=== PATIENT | female | born 1945 | race Caucasian/White ===

== ENCOUNTER 2018-06-30 04:10 | Emergency (ER) | payer MEDICARE, OTHER ==
--- NOTE | 2018-06-30 04:38 | EDM.PDOC ---
ED HPI GENERAL MEDICAL PROBLEM - General Chief Complaint: Genitourinary Problem Stated Complaint: SCRAPPING OF THE BLADDER DONE TUBE IS CLOGGED Time Seen by Provider: 06/30/18 04:31 Source of Information: Reports: Patient History Limitations: Reports: No Limitations - History of Present Illness INITIAL COMMENTS - FREE TEXT/NARRATIVE: The patient presents with a clogged rabago catheter. She had scraping of her bladder done on the . She has a rabago cath in and it is to be in until the . The cath stopped draining at about 1am. She has uncomfortable. Onset: Gradual Duration: Hour(s): Location: Reports: Abdomen Quality: Reports: Sharp Severity: Moderate Improves with: Reports: None Worsens with: Reports: None Associated Symptoms: Reports: No Other Symptoms Bladder Pain Score (Numeric/FACES): 8 - Related Data Allergies Allergy/AdvReac Type Severity Reaction Status Date / Time aspirin Allergy Other Verified 06/30/18 04:22 hydrochlorothiazide Allergy Hives Verified 06/30/18 04:22 Home Meds: Home Meds valACYclovir HCl [Valacyclovir] 500 mg PO DAILY 01/28/14 [History] Ca Cmb No.1/Vit D3/B-6/FA/B12 [Vitamin D3 1,000 Unit] 1 tab PO DAILY 02/19/14 [ History] Vitamin B Complex [B Complex] 1 tab PO DAILY 02/19/14 [History] metFORMIN [Glucophage] 500 mg PO BID 02/19/14 [History] Past Medical History Oncologic (Cancer) History: Reports: Breast - Past Surgical History Female Surgical History: Reports: Other (See Below) Other Female Surgeries/Procedures: bladder scrapping Oncologic Surgical History: Reports: Mastectomy Social & Family History - Caffeine Use Caffeine Use: Reports: Coffee - Recreational Drug Use Recreational Drug Use: No ED ROS GENERAL - Review of Systems Review Of Systems: See Below Constitutional: Reports: No Symptoms HEENT: Reports: No Symptoms Respiratory: Reports: No Symptoms Cardiovascular: Reports: No Symptoms Endocrine: Reports: No Symptoms GI/Abdominal: Reports: Abdominal Pain : Reports: Other (Rabago cath plugged) ED EXAM, RENAL/ - Physical Exam Exam: See Below Exam Limited By: No Limitations General Appearance: Alert, Mild Distress Ears: Normal External Exam Nose: Normal Inspection Head: Atraumatic, Normocephalic Neck: Normal Inspection Respiratory/Chest: No Respiratory Distress GI/Abdominal: Other (Distended bladder) (Female) Exam: Other (No drainage from the rabago cath) Course - Vital Signs Last Recorded V/S: Last Vital Signs Temp 97.8 F 06/30/18 04:18 Pulse 98 06/30/18 04:18 Resp 16 06/30/18 04:18 BP 182/70 H 06/30/18 04:18 Pulse Ox 98 06/30/18 04:18 - Re-Assessments/Exams Free Text/Narrative Re-Assessment/Exam: 06/30/18 04:37 I will have my nurse irrigate the rabago and if that does not help she will need a new catheter. 06/30/18 06:00 The irrigation did not help. My nurse had to put a new rabago cath in and the patient feels much better. She is having good output. Departure - Departure Time of Disposition: 06:05 Disposition: Home, Self-Care 01 Condition: Good Clinical Impression: Obstructed Rabago catheter Qualifiers: Encounter type: initial encounter Qualified Code(s): T83.091A - Other mechanical complication of indwelling urethral catheter, initial encounter - Discharge Information *PRESCRIPTION DRUG MONITORING PROGRAM REVIEWED*: No *COPY OF PRESCRIPTION DRUG MONITORING REPORT IN PATIENT HEMA: No Referrals: Mary Daly MD [Primary Care Provider] - Forms: ED Department Discharge Additional Instructions: Please return if you are worse.
== END 2018-06-30 06:39 | disposition home or self-care (01) ==
LOC: JD.ED 04:10
DX: T83.091A Other mechanical complication of indwelling urethral catheter, initial encounter (principal); Z79.899 Other long term (current) drug therapy; Z88.8 Allergy status to other drugs, medicaments and biological substances
CPT/HCPCS: 51702; 99283; 99283-25

== ENCOUNTER 2018-07-01 19:08 | Emergency (ER) | payer MEDICARE, OTHER ==
--- NOTE | 2018-07-01 20:19 | EDM.PDOC ---
ED HPI GENERAL MEDICAL PROBLEM - General Chief Complaint: Genitourinary Problem Stated Complaint: CATH NOT WORKING Time Seen by Provider: 07/01/18 19:20 Source of Information: Reports: Patient, RN Notes Reviewed History Limitations: Reports: No Limitations - History of Present Illness INITIAL COMMENTS - FREE TEXT/NARRATIVE: Patient is a 73 year old female who presents to the ED for rabago catheter problems. She has has a bladder scraping for cancer, which was done by Dr. Carrero in [place] in [place]. She was seen in the ED last night when her catheter stopped working and that she had a new catheter placed at that visit. She did note that around 3 pm she noticed that the bag did not seem as full as it normally should. She states that she had to empty the bag every 10 hours or so. It was then that she noticed feeling bladder fullness and a pressure like pain in her lower abdomen. At ED visit, she only had 35 mL of urine in bag from 3pm. Bladder Pain Score (Numeric/FACES): 3 - Related Data Allergies Allergy/AdvReac Type Severity Reaction Status Date / Time aspirin Allergy Other Verified 07/01/18 19:17 hydrochlorothiazide Allergy Hives Verified 07/01/18 19:17 saxagliptin [From Onglyza] Allergy Other Verified 07/01/18 19:17 Home Meds: Home Meds metFORMIN [Glucophage] 500 mg PO BID 02/19/14 [History] Past Medical History Oncologic (Cancer) History: Reports: Bladder, Breast - Past Surgical History Female Surgical History: Reports: Other (See Below) Other Female Surgeries/Procedures: bladder scrapping Oncologic Surgical History: Reports: Mastectomy Social & Family History - Tobacco Use Smoking Status *Q: Never Smoker - Caffeine Use Caffeine Use: Reports: Coffee - Recreational Drug Use Recreational Drug Use: No ED ROS GENERAL - Review of Systems Review Of Systems: See Below Constitutional: Reports: No Symptoms HEENT: Reports: No Symptoms Respiratory: Reports: No Symptoms Cardiovascular: Reports: No Symptoms Endocrine: Reports: No Symptoms GI/Abdominal: Reports: No Symptoms : Reports: Urinary Retention, Other (urinar catheter obstruction, bladder fullness) Skin: Reports: No Symptoms Neurological: Reports: No Symptoms Psychiatric: Reports: No Symptoms Hematologic/Lymphatic: Reports: No Symptoms Immunologic: Reports: No Symptoms ED EXAM, RENAL/ - Physical Exam Exam: See Below Text/Narrative:: exam limited to lower abdomen and catheter placement. Exam Limited By: No Limitations General Appearance: Alert, WD/WN, No Apparent Distress Respiratory/Chest: No Respiratory Distress, Lungs Clear, Normal Breath Sounds, No Accessory Muscle Use, Chest Non-Tender Cardiovascular: Normal Peripheral Pulses, Regular Rate, Rhythm, No Murmur GI/Abdominal: Normal Bowel Sounds, Soft, No Distention, No Mass, Tender (slight suprapubic tenderness) (Female) Exam: Deferred Extremities: Normal Inspection, Normal Capillary Refill Neurological: Alert, Oriented, Normal Cognition, No Motor/Sensory Deficits Psychiatric: Normal Affect, Normal Mood Skin Exam: Warm, Dry, Intact, Normal Color, No Rash Course - Vital Signs Last Recorded V/S: Last Vital Signs Temp 97.8 F 07/01/18 19:18 Pulse 90 07/01/18 19:18 Resp 18 07/01/18 19:18 BP 196/81 H 07/01/18 19:18 Pulse Ox 100 07/01/18 19:18 - Re-Assessments/Exams Free Text/Narrative Re-Assessment/Exam: 07/01/18 20:00 Pt presents to ED for the evaluation of rabago catheter problems. Will do bladder scan to see how much urine she is retaining and then will have nurse irrigate to see if this dislodges any obstruction that may be present, otherwise we may have to replace the rabago catheter again. 07/01/18 20:15 RN informed me that her bladder scan revealed 234mL in her bladder and that she was able to irrigate the rabago with 60mL sterile saline. The patient will be educated by nursing staff on how to irrigate catheter/troubleshoot catheter at home if she feels comfortable enough to do so. Departure - Departure Time of Disposition: 20:24 Disposition: Home, Self-Care 01 Condition: Good Clinical Impression: Rabago catheter problem Qualifiers: Encounter type: subsequent encounter Qualified Code(s): T83.9XXD - Unspecified complication of genitourinary prosthetic device, implant and graft, subsequent encounter - Discharge Information *PRESCRIPTION DRUG MONITORING PROGRAM REVIEWED*: No *COPY OF PRESCRIPTION DRUG MONITORING REPORT IN PATIENT HEMA: No Instructions: Indwelling Urinary Catheter Care, Adult, [id number] Referrals: Mary Daly MD [Primary Care Provider] - Forms: ED Department Discharge Additional Instructions: You have been evaluated in the ED for your rabago catheter problem. We were able to dislodge the obstruction and your catheter should be working well again. The nurse has provided instructions on how to irrigate your catheter should you have issues again, if you feel comfortable to do so yourself, you may try to irrigate if you notice decreased output. Please only use 60mL of sterile water to see if you can get adequate irrigation. Otherwise, we would be more than happy to provide services to you in the ED. Please return to ED if your symptoms should change or worsen.
== END 2018-07-01 20:47 | disposition home or self-care (01) ==
LOC: JD.ED 19:08
DX: T83.9XXA Unspecified complication of genitourinary prosthetic device, implant and graft, initial encounter (principal); C67.9 Malignant neoplasm of bladder, unspecified; Z88.6 Allergy status to analgesic agent; Z88.8 Allergy status to other drugs, medicaments and biological substances
CPT/HCPCS: 51700; 51798; 99283; 99283-25

== ENCOUNTER 2018-08-28 11:07 | Emergency (ER) | payer MEDICARE, OTHER ==
--- NOTE | 2018-08-28 11:51 | EDM.PDOC ---
ED HPI GENERAL MEDICAL PROBLEM - General Chief Complaint: Lower Extremity Injury/Pain Stated Complaint: RT KNEE PAIN Time Seen by Provider: 08/28/18 11:36 Source of Information: Reports: Patient, RN Notes Reviewed History Limitations: Reports: No Limitations - History of Present Illness INITIAL COMMENTS - FREE TEXT/NARRATIVE: Patient is a 73 year old female who presents to the ED for the evaluation of continuing right knee pain. She states that she was previously seen by Dr. Urban on 08-24-18 and had an x-ray done and it showed arthritis. Dr. Urban recommended conservative management with cold therapy to see if this didn't help. The patient states that over the weekend, the pain has worsened and she is unable to bear much weight on her knee without immense pain. She has not been able to get around very well due to the pain. She states that she is to see Dr. Maddox for further evaluation of the knee on . She states the pain is always present and does not come and go, nor does it radiate anywhere else. She denies any hip pain or muscle pain in her right leg. She notes this pain to be a 10/10. She does have a friend present in the room and the friend states that the pain has seemed to worsen since her evaluation on and she is unable to ambulate very far or bear weight without immense pain. 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: Reports: Acetaminophen Right Knee Pain Score (Numeric/FACES): 10 - Related Data Allergies Allergy/AdvReac Type Severity Reaction Status Date / Time aspirin Allergy Other Verified 08/28/18 11:16 hydrochlorothiazide Allergy Hives Verified 08/28/18 11:16 saxagliptin [From Onglyza] Allergy Other Verified 08/28/18 11:16 Home Meds: Home Meds metFORMIN [Glucophage] 1,000 mg PO BID 02/19/14 [History] Losartan [Cozaar] 100 mg PO DAILY 08/28/18 [History] Past Medical History HEENT History: Reports: Impaired Vision Cardiovascular History: Reports: High Cholesterol, Hypertension Respiratory History: Reports: Pneumonia, Recurrent Gastrointestinal History: Reports: Colon Polyp, Diverticulosis Genitourinary History: Reports: Other (See Below) [employer] History: Reports: Musculoskeletal History: Reports: Arthritis Endocrine/Metabolic History: Reports: Diabetes, Type II, Obesity/BMI 30+ Oncologic (Cancer) History: Reports: Bladder, Breast - Past Surgical History HEENT Surgical History: Reports: Oral Surgery GI Surgical History: Reports: Colonoscopy Female Surgical History: Reports: Other (See Below) Other Female Surgeries/Procedures: bladder scrapping Musculoskeletal Surgical History: Reports: ORIF Oncologic Surgical History: Reports: Mastectomy, Other (See Below) Social & Family History - Family History Family Medical History: Noncontributory - Tobacco Use Smoking Status *Q: Never Smoker - Caffeine Use Caffeine Use: Reports: Coffee - Recreational Drug Use Recreational Drug Use: No - Living Situation & Occupation Living situation: Reports: , Alone Occupation: Retired Review of Systems - Review of Systems Review Of Systems: See Below Constitutional: Reports: No Symptoms Eyes: Reports: No Symptoms Ears: Reports: No Symptoms Nose: Reports: No Symptoms Mouth/Throat: Reports: No Symptoms Respiratory: Reports: No Symptoms Cardiovascular: Reports: No Symptoms GI/Abdominal: Reports: No Symptoms Genitourinary: Reports: No Symptoms Musculoskeletal: Reports: Joint Pain (right knee). Denies: Back Pain, Leg Pain , Foot Pain, Joint Swelling, Muscle Pain Skin: Reports: No Symptoms Neurological: Reports: No Symptoms Psychiatric: Reports: No Symptoms ED EXAM, GENERAL - Physical Exam Exam: See Below Exam Limited By: No Limitations General Appearance: Alert, WD/WN, No Apparent Distress Eye Exam: Bilateral Eye: Normal Inspection Ears: Normal External Exam Nose: Normal Inspection Throat/Mouth: Normal Inspection, Normal Lips, Normal Voice Head: Atraumatic Neck: Normal Inspection, Supple, Non-Tender, Full Range of Motion Respiratory/Chest: No Respiratory Distress, Lungs Clear, Normal Breath Sounds, No Accessory Muscle Use, Chest Non-Tender Cardiovascular: Normal Peripheral Pulses, Regular Rate, Rhythm, No Murmur GI/Abdominal: Normal Bowel Sounds, Soft, Non-Tender, No Distention Back Exam: Normal Inspection, Full Range of Motion Extremities: Normal Inspection, Non-Tender, No Pedal Edema, Normal Capillary Refill, Limited Range of Motion (of R knee, d/t pain. She does have pain with valgus stress at this time. Most of her knee pain is on the medial aspect of the R knee joint. No Prince's cyst appreciated. No swelling appreciated. ) Neurological: Alert, Oriented, Normal Cognition, Normal Reflexes, No Motor/ Sensory Deficits Psychiatric: Normal Affect, Normal Mood Skin Exam: Warm, Dry, Intact, Normal Color, No Rash Course - Vital Signs Last Recorded V/S: Last Vital Signs Temp 97.3 F 08/28/18 11:21 Pulse 84 08/28/18 11:21 Resp 18 08/28/18 11:21 BP 171/103 H 08/28/18 11:21 Pulse Ox 99 08/28/18 11:21 - Orders/Labs/Meds Orders: Active Orders 24 hr Category Date Time Status Knee wo Cont Rt [CT] Stat Exams 08/28/18 12:09 Ordered Meds: Medications Discontinued Medications Generic Name Dose Route Start Last Admin Trade Name Martellq PRN Reason Stop Dose Admin Ketorolac Tromethamine 30 mg 08/28/18 12:11 08/28/18 12:15 Toradol IM 08/28/18 12:12 30 mg ONETIME ONE Administration Tramadol HCl 50 mg 08/28/18 13:24 08/28/18 13:31 Ultram PO 08/28/18 13:25 50 mg ONETIME ONE Administration - Radiology Interpretation Free Text/Narrative:: CT right knee Technique: Multiple axial sections through the right knee were obtained. Reconstructed coronal and sagittal images were obtained. Intravenous contrast not utilized. Findings: Medial joint space narrowing is seen. Osteophytes are noted off the medial and lateral joints as well as within the intercondylar notch. Severe joint space narrowing with subchondral cystic change is seen within the lateral patellofemoral joint. Osteophytes are noted off the patellofemoral joint both medially and laterally. Detached bony density which appears old is seen off the lateral patella. Minimal joint effusion is seen. Osteopenia is noted. No acute fracture is appreciated. No dislocation is seen. Impression: 1. Osteopenia and degenerative change. 2. Small joint effusion. 3. No acute bony abnormality is identified. - Re-Assessments/Exams Free Text/Narrative Re-Assessment/Exam: 08/28/18 12:24 Pt presents to the ED for the evaluation of R knee pain. Although I did not examine her last , the patient does seem to appear to be in a lot of pain/discomfort. I have ordered a R knee CT wo contrast for further evaluation of the joint and 30m IM Toradol for initial pain relief. Due to her pain with valgus stress, I question whether she may not have a soft tissue injury with an arthritic joint. 08/28/18 13:16 CT is done and shows Impression: 1. Osteopenia and degenerative change. 2. Small joint effusion. 3. No acute bony abnormality is identified. The patient's pain is still most likely due to arthritis. Will give general suggestions for further management and recommend that she keep her follow-up appointment with Dr. Maddox on September 19. 08/28/18 13:23 Pt was re-assessed at bedside, and she is able to bear weight but is still somewhat painful to do so. I will order tramadol 50 mg to see if this doesn't provide her some relief. Departure - Departure Time of Disposition: 14:11 Disposition: Home, Self-Care 01 Condition: Fair Clinical Impression: Right medial knee pain - Discharge Information *PRESCRIPTION DRUG MONITORING PROGRAM REVIEWED*: No *COPY OF PRESCRIPTION DRUG MONITORING REPORT IN PATIENT HEMA: No Instructions: Knee Pain, Adult, [id number], Pain Medicine Instructions, Easy- to-Read Referrals: Mary Daly MD [Primary Care Provider] - Forms: ED Department Discharge Additional Instructions: You have been evaluated in the ED for your right knee pain. Your CT demonstrated no acute bony abnormality. Please use ice/heat as tolerated to the affected area. You may take tylenol 500 mg or ibuprofen 600mg q6 hrs for pain relief. Please do so until you have a tolerable level of pain with activity. Do not exceed 4000mg tylenol in one day. Do not exceed 3200mg ibuprofen in one day. Please take the tramadol every 6 hours as needed for pain not relieved by tylenol/ibuprofen alone. Please return to ED if your symptoms should change or worsen. - My Orders Last 24 Hours: My Active Orders 08/28/18 12:09 Knee wo Cont Rt [CT] Stat - Assessment/Plan Last 24 Hours: My Active Orders 08/28/18 12:09 Knee wo Cont Rt [CT] Stat
[2018-08-28] MEDS ORDERED: Ketorolac 30 MG/ML SDV IM ONE (12:11)
[2018-08-28] MEDS ORDERED: traMADol 50 MG Tab PO ONE (13:24)
--- NOTE | 2018-08-28 14:30 | CT ---
CT right knee Technique: Multiple axial sections through the right knee were obtained. Reconstructed coronal and sagittal images were obtained. Intravenous contrast not utilized. Findings: Medial joint space narrowing is seen. Osteophytes are noted off the medial and lateral joints as well as within the intercondylar notch. Severe joint space narrowing with subchondral cystic change is seen within the lateral patellofemoral joint. Osteophytes are noted off the patellofemoral joint both medially and laterally. Detached bony density which appears old is seen off the lateral patella. Minimal joint effusion is seen. Osteopenia is noted. No acute fracture is appreciated. No dislocation is seen. Impression: 1. Osteopenia and degenerative change. 2. Small joint effusion. 3. No acute bony abnormality is identified. Diagnostic code #3 MTDD
== END 2018-08-28 14:20 | disposition home or self-care (01) ==
LOC: JD.ED 11:07
DX: M25.561 Pain in right knee (principal); E78.00 Pure hypercholesterolemia, unspecified; I10 Essential (primary) hypertension; E11.9 Type 2 diabetes mellitus without complications; Z88.8 Allergy status to other drugs, medicaments and biological substances; Z79.899 Other long term (current) drug therapy; Z79.84 Long term (current) use of oral hypoglycemic drugs
CPT/HCPCS: 73700; 96372; 99283; A9270; J1885

== ENCOUNTER 2022-09-08 06:26 | Day surgery (SDC) | payer MEDICARE, OTHER ==
[~2022-09-08 06:26] MED LIST: Lactated Ringers 1,000 ML IV SCH; Lidocaine 1%/Sod Bicarbonate in NS 8.4% 1 ML Syringe IDERM PRN; Sodium Chloride 0.9% 10 ML Syringe FLUSH PRN; Sodium Chloride 0.9% 10 ML Syringe FLUSH SCH
[2022-09-08] MEDS ORDERED: Midazolam 1 MG/ML 2 ML SDV ONE (06:55)
[2022-09-08] MEDS ORDERED: Propofol 200 MG/20 ML SDV ONE (06:55)
[2022-09-08] MEDS ORDERED: fentaNYL 100 MCG/2 ML SDV ONE (06:55)
[2022-09-08] MEDS ORDERED: Lidocaine 1% 2 ML ONE (06:56)
[2022-09-08] MEDS ORDERED: HYDROmorphone 0.5 MG/0.5 ML Syringe IVPUSH PRN (07:16)
[2022-09-08] MEDS ORDERED: fentaNYL 100 MCG/2 ML SDV IVPUSH PRN (07:16)
[2022-09-08] MEDS ORDERED: Ondansetron 4 MG/2 ML SDV IVPUSH PRN (07:16)
[2022-09-08] MEDS ORDERED: ePHEDrine 50 MG/ML SDV ONE (08:23)
== END 2022-09-08 09:30 | disposition home or self-care (01) ==
LOC: JD.SDS 06:26
PROVIDERS: ATTEND Family Medicine
DX: Z12.11 Encounter for screening for malignant neoplasm of colon (principal); D12.3 Benign neoplasm of transverse colon; D12.0 Benign neoplasm of cecum; D12.2 Benign neoplasm of ascending colon; K57.30 Diverticulosis of large intestine without perforation or abscess without bleeding; K64.1 Second degree hemorrhoids; K64.4 Residual hemorrhoidal skin tags; E78.00 Pure hypercholesterolemia, unspecified; I48.19 Other persistent atrial fibrillation; E11.22 Type 2 diabetes mellitus with diabetic chronic kidney disease; I12.9 Hypertensive chronic kidney disease with stage 1 through stage 4 chronic kidney disease, or unspecified chronic kidney disease; N18.32 Chronic kidney disease, stage 3b; E66.01 Morbid (severe) obesity due to excess calories; Z86.010 Personal history of colon polyps; Z79.4 Long term (current) use of insulin; Z79.84 Long term (current) use of oral hypoglycemic drugs; Z79.899 Other long term (current) drug therapy; Z88.8 Allergy status to other drugs, medicaments and biological substances; Z91.048 Other nonmedicinal substance allergy status; Z87.891 Personal history of nicotine dependence; Z68.39 Body mass index [BMI] 39.0-39.9, adult
CPT/HCPCS: 45385; J2250; J2704; J3010; J7120; 00811; J3490

== ENCOUNTER 2022-12-31 20:22 | Emergency (ER) | payer MEDICARE, OTHER ==
[2022-12-31 20:53] LABS: APPEARANCE,URINE TURBID (Clear); BILIRUBIN,URINE 3+ (Negative); COLOR,URINE RED (Yellow); GLUCOSE,URINE TRACE (Negative); KETONES,URINE 2+ (Negative); LEUKOCYTE ESTERASE,URINE 3+ (Negative); NITRITE,URINE NEGATIVE (Negative); OCCULT BLOOD,URINE 3+ (Negative); PH,URINE 8.5 (5.0-8.0); PROTEIN,URINE 3+ (Negative)
[2022-12-31 21:27] LABS: BACTERIA,URINE MODERATE /hpf (FEW); MUCUS,URINE NOT SEEN /hpf (FEW); RBC,URINE TOO NUMEROUS TO CNT /hpf (0-5); RENAL EPITHELIAL CELLS,URINE 0-5 /hpf (0-5); SQUAMOUS EPITHELIAL CELLS,UR 0-5 /hpf (0-5); WBC,URINE 30-40 /hpf (0-5)
[2022-12-31] MEDS ORDERED: Nitrofurantoin Monohydrate/Macrocrystalline 100 MG Cap PO ONE (23:23)
== END 2022-12-31 23:52 | disposition home or self-care (01) ==
LOC: JD.ED 20:22
DX: R31.9 Hematuria, unspecified (principal); I48.91 Unspecified atrial fibrillation; I12.9 Hypertensive chronic kidney disease with stage 1 through stage 4 chronic kidney disease, or unspecified chronic kidney disease; E11.22 Type 2 diabetes mellitus with diabetic chronic kidney disease; N18.30 Chronic kidney disease, stage 3 unspecified; E66.9 Obesity, unspecified; Z68.41 Body mass index [BMI] 40.0-44.9, adult; Z79.84 Long term (current) use of oral hypoglycemic drugs; Z79.899 Other long term (current) drug therapy; Z88.6 Allergy status to analgesic agent; Z91.048 Other nonmedicinal substance allergy status; Z88.3 Allergy status to other anti-infective agents; Z88.8 Allergy status to other drugs, medicaments and biological substances
CPT/HCPCS: 81001; 87086; 99283